=== PATIENT | male | born 1950 | race Hispanic/Latino ===

== ENCOUNTER 2018-08-10 08:59 | Day surgery (SDC) | payer MEDICARE ==
[2018-08-10] MEDS ORDERED: NACL 0.9% 1000 ML 1,000 ML IV SCH (11:30)
[2018-08-10] MEDS ORDERED: ADRENALIN ONE (11:37)
[2018-08-10] MEDS ORDERED: XYLOCAINE 1% 20 mL ONE (11:37)
[2018-08-10] MEDS ORDERED: LIDOCAINE VISCOUS 2% ONE (11:37)
[2018-08-10] MEDS ORDERED: HURRICAINE ONE 20% TOPICAL SPRAY MM (11:38)
[2018-08-10] MEDS ORDERED: WATER FOR IRRIG STERILE IR ONE (11:38)
--- NOTE | 2018-08-10 11:45 | Anesthesia Consultation ---
Anesthesia Consult and Med Hx Date of service: 08/10/18 - Airway Anesthetic Teeth Evaluation: Dentures (upper) ROM Head & Neck: Adequate Mental/Hyoid Distance: Adequate Mallampati Class: Class III Intubation Access Assessment: Possibly Difficult - Pre-Operative Health Status ASA Pre-Surgery Classification: ASA3 Proposed Anesthetic Plan: MAC - Pre-Anesthesia Comment Pre-Anesthesia Comments: lung mass - Pulmonary Hx Smoking: Yes (quit 2013) SOB: Yes COPD: Yes (daily inhalers) - Cardiovascular System Hx Peripheral Vascular Disease: Yes (DVT ) - Endocrine Hx Renal Disease: Yes (Renal insuff ) - Other Systems Hx Alcohol Use: Yes (daily 2-3 beers ) Hx Substance Use: Yes (quit 15 years ago )
--- NOTE | 2018-08-10 11:46 | Anesthesia Day of Surgery ---
Anesthesia Day of Surgery - Day of Surgery Patient Examined: Yes Patient H&P Reviewed: Yes Patient is NPO: Yes
[2018-08-10] MEDS ORDERED: LIDOCAINE VISCOUS 2% PO ONE ×2 (12:10→12:12)
[2018-08-10] MEDS ORDERED: DIPRIVAN 10 MG/ML IV ONE ×2 (12:12→12:36)
[2018-08-10] MEDS ORDERED: DILAUDID ONE (12:12)
[2018-08-10] MEDS ORDERED: VERSED ONE (12:12)
[2018-08-10] MEDS ORDERED: XYLOCAINE 2% INFILTRATI ONE (12:12)
[2018-08-10] MEDS ORDERED: XYLOCAINE 1% 20 mL INFILTRATI ONE ×3 (12:30→12:42)
[2018-08-10] MEDS ORDERED: ADRENALIN IV ONE (12:41)
--- NOTE | 2018-08-10 13:40 | Operative Report ---
PROCEDURE: Bronchoscopy. INDICATIONS: Hemoptysis, right upper lung mass. DESCRIPTION OF PROCEDURE: With the informed consent obtained from the patient, procedure was done. The procedure was done under MAC anesthesia. Via the right naris, endoscope was introduced. No bleeding noted in the upper airway. Vocal cords had good abduction and adduction. No blood or lesion noted endotracheally. The left lung appeared normal. No endobronchial lesions noted. No bleeding coming from the left lung. In the right upper lobe, there was an obstructing lesion, possible clot with mass. The scope was also introduced in the lower and middle lobes. Bronchial washing, brushing, and biopsy done in the right upper lobe. Specimen from washing sent for [employer], fungal, and also for cytology. Specimen from brushing sent for cytology. Specimen from biopsy sent pathology. There was a lot of bleeding noted even prior to washings or biopsies were done or even before brushings were sent. Aliquots of ice cold saline, approximately a total of 3 mL of diluted epinephrine were introduced with significant decrease in bleeding. See Anesthesia notes in reference to vital signs and medications used during the procedure. Approximately 3 mL of lidocaine was also used empirically. The patient was awake and alert to person and place after the procedure. I spoke to patient's passenger coach driver, Zachary Mayes, in reference to followup. JOB# [id number] DARWIN/DORIAN
[2018-08-10 13:58] VITALS: BP 113/69
--- NOTE | 2018-08-10 14:02 | XRay Report ---
AP CHEST: HISTORY: Status post biopsy on right There is partial atelectasis throughout the right upper lobe with suggestion of a right hilar mass/adenopathy. The remainder of the lungs are clear. Mild emphysematous changes are suspected. No evidence for pneumothorax, pneumonia or pleural effusion. Heart size is within normal limits. IMPRESSION: No evidence for pneumothorax. Partial atelectasis in the right upper lobe with probable right hilar mass.
== END 2018-08-10 09:00 | disposition home or self-care (01) ==
LOC: GIO 08:59
PROVIDERS: ATTEND Specialist
DX: J98.4 Other disorders of lung (principal); J44.9 Chronic obstructive pulmonary disease, unspecified; M06.9 Rheumatoid arthritis, unspecified; I73.9 Peripheral vascular disease, unspecified; M10.9 Gout, unspecified; Z72.89 Other problems related to lifestyle; Z87.891 Personal history of nicotine dependence; Z86.718 Personal history of other venous thrombosis and embolism
CPT/HCPCS: 31625; 71045; 87102; 87116; 87220; 88104; 88112; 88305; J0171; J1170; J2250; J2704; J7030

== ENCOUNTER 2018-08-19 20:42 | Inpatient (IN) | payer MEDICARE ==
[2018-08-19] MEDS ORDERED: NACL 0.9% 1000 ML 1,000 ML IV ONE (21:05)
[2018-08-19 21:28] LABS: INR 0.97 (0.87-1.13)
[2018-08-19 21:29] LABS: Partial Thromboplastin Time 25.2 Sec. (24.2-36.6)
[2018-08-19 21:29] LABS: Basophils # (Auto) 0.1 K/mm3 (0.0-0.1); Basophils % (Auto) 0.8 % (0.0-1.8); Eosinophils # (Auto) 0.3 K/mm3 (0.0-0.4); Eosinophils % (Auto) 2.3 % (0.0-4.3); Hematocrit 43.1 % (35.5-45.6); Hemoglobin 14.6 gm/dl (11.8-15.2); Lymphocytes # (Auto) 2.3 K/mm3 (1.2-5.4); Lymphocytes % (Auto) 20.4 % (13.4-35.0); Mean Corpuscular HGB Conc 34 % (32-34); Mean Corpuscular Hemoglobin 33 pg (28-32); Mean Corpuscular Volume 97 fl (84-94); Monocytes # (Auto) 1.3 K/mm3 (0.0-0.8); Monocytes % (Auto) 10.9 % (0.0-7.3); Platelet Count 371 K/mm3 (140-440); Red Blood Count 4.43 M/mm3 (3.65-5.03); Red Cell Distribution Width 12.6 % (13.2-15.2)
[2018-08-19 21:45] LABS: Alanine Aminotransferase 11 units/L (7-56); Albumin 3.8 g/dL (3.9-5); BUN/Creatinine Ratio 10; Blood Urea Nitrogen 6 mg/dL (9-20); Calcium 9.4 mg/dL (8.4-10.2); Hemolysis Index 6; Lipase 16 units/L (13-60)
--- NOTE | 2018-08-19 22:49 | Emergency Department Report ---
ED GI Bleed HPI - General Chief complaint: GI Bleed Stated complaint: WEAK/THROWING UP BLOOD Time Seen by Provider: 08/19/18 22:48 Source: patient Mode of arrival: Ambulatory Limitations: No Limitations - History of Present Illness Initial comments: Patient presented to the emergency room complaining of coughing and having black stools. He was evaluated here with CT scan, bronchoscopy and biopsy was done for right lung mass after which he was discharged home. However patient said that he is still coughing up blood and recently his stools has turned black. MD complaint: other (black stool) -: Sudden Radiation: none Quality: painless Consistency: constant Improves with: none Worsens with: none Associated Symptoms: abdominal pain. denies: nausea, vomiting - Related Data Home Medications Medication Instructions Recorded Confirmed Last Taken Probenecid/Colchicine 1 tab PO DAILY 09/23/14 08/10/18 08/09/18 [Probenecid-Colchicine Tab] Alfuzosin HCl 10 mg PO DAILY 08/10/18 08/10/18 08/09/18 Temazepam 30 mg PO DAILY 08/10/18 08/10/18 08/09/18 Allergies Allergy/AdvReac Type Severity Reaction Status Date / Time No Known Allergies Allergy Verified 09/23/14 23:52 ED Review of Systems ROS: Stated complaint: WEAK/THROWING UP BLOOD Other details as noted in HPI Comment: All other systems reviewed and negative Constitutional: denies: chills, fever Eyes: denies: eye pain ENT: denies: ear pain Respiratory: denies: cough, orthopnea, shortness of breath Cardiovascular: denies: chest pain, palpitations, dyspnea on exertion Endocrine: no symptoms reported Gastrointestinal: abdominal pain, other (Black stools). denies: nausea, vomiting, diarrhea, constipation Genitourinary: denies: urgency, dysuria Musculoskeletal: denies: back pain Skin: denies: rash, lesions Neurological: denies: headache, weakness, numbness, paresthesias Psychiatric: denies: anxiety, depression Hematological/Lymphatic: denies: easy bleeding, easy bruising ED Past Medical Hx - Past Medical History Hx Deep Vein Thrombosis: Yes (Right leg 05/2014) Hx Renal Disease: Yes (Renal insuff ) Hx Arthritis: Yes (Gout, RA) Hx Kidney Stones: Yes Hx COPD: Yes (daily inhalers) Additional medical history: BPH - Social History Smoking Status: Never Smoker Substance Use Type: Alcohol - Medications Home Medications: Home Medications Medication Instructions Recorded Confirmed Last Taken Type Probenecid/Colchicine 1 tab PO DAILY 09/23/14 08/10/18 08/09/18 History [Probenecid-Colchicine Tab] Alfuzosin HCl 10 mg PO DAILY 08/10/18 08/10/18 08/09/18 History Temazepam 30 mg PO DAILY 08/10/18 08/10/18 08/09/18 History ED Physical Exam - General Limitations: No Limitations General appearance: alert, in no apparent distress - Head Head exam: Present: atraumatic, normocephalic, normal inspection - Eye Eye exam: Present: normal appearance, PERRL, EOMI Pupils: Present: normal accommodation - ENT ENT exam: Present: normal exam, normal orophraynx, mucous membranes moist - Neck Neck exam: Present: normal inspection, full ROM. Absent: tenderness - Respiratory Respiratory exam: Present: normal lung sounds bilaterally. Absent: respiratory distress, wheezes, rales, rhonchi, stridor - Cardiovascular Cardiovascular Exam: Present: normal rhythm, tachycardia, normal heart sounds - GI/Abdominal GI/Abdominal exam: Present: soft, distended, tenderness, normal bowel sounds. Absent: guarding, rebound, rigid - Rectal Rectal exam: Present: normal rectal tone, heme (+) stool, black stool, other ( [place] was Ms. Noemi RN.) - Extremities Exam Extremities exam: Present: normal inspection, full ROM, normal capillary refill. Absent: tenderness - Back Exam Back exam: Present: normal inspection, full ROM. Absent: tenderness - Neurological Exam Neurological exam: Present: alert, oriented X3, CN II-XII intact - Psychiatric Psychiatric exam: Present: normal affect, normal mood - Skin Skin exam: Present: warm, dry, intact, normal color. Absent: rash ED Course Vital Signs 08/19/18 21:00 Temperature 97.9 F Pulse Rate 106 H Respiratory 18 Rate Blood Pressure 179/95 O2 Sat by Pulse 95 Oximetry ED Medical Decision Making - Lab Data Result diagrams: 08/19/18 21:16 08/19/18 21:16 Lab Results 08/19/18 08/19/18 08/19/18 Range/Units 21:08 21:16 21:16 WBC 11.5 H (4.5-11.0) K/mm3 RBC 4.43 (3.65-5.03) M/mm3 Hgb 14.6 (11.8-15.2) gm/dl Hct 43.1 (35.5-45.6) % MCV 97 H (84-94) fl MCH 33 H (28-32) pg MCHC 34 (32-34) % RDW 12.6 L (13.2-15.2) % Plt Count 371 (140-440) K/mm3 Lymph % (Auto) 20.4 (13.4-35.0) % [place] % (Auto) 10.9 H (0.0-7.3) % Eos % (Auto) 2.3 (0.0-4.3) % Baso % (Auto) 0.8 (0.0-1.8) % Lymph # 2.3 (1.2-5.4) K/mm3 [place] # 1.3 H (0.0-0.8) K/mm3 Eos # 0.3 (0.0-0.4) K/mm3 Baso # 0.1 (0.0-0.1) K/mm3 Seg Neutrophils % 65.6 (40.0-70.0) % Seg Neutrophils # 7.5 (1.8-7.7) K/mm3 PT 13.4 (12.2-14.9) Sec. INR 0.97 (0.87-1.13) APTT 25.2 (24.2-36.6) Sec. Sodium 131 L (137-145) mmol/L Potassium 4.4 (3.6-5.0) mmol/L Chloride 95.8 L (98-107) mmol/L Carbon Dioxide 23 (22-30) mmol/L Anion Gap 17 mmol/L BUN 6 L (9-20) mg/dL Creatinine 0.6 L (0.8-1.5) mg/dL Estimated GFR > 60 ml/min BUN/Creatinine Ratio 10 % Glucose 94 (75-100) mg/dL Calcium 9.4 (8.4-10.2) mg/dL Total Bilirubin 0.40 (0.1-1.2) mg/dL AST 26 (5-40) units/L ALT 11 (7-56) units/L Alkaline Phosphatase 175 H (35-129) units/L Troponin T (0.00-0.029) ng/mL NT-Pro-B Natriuret Pep (0-900) pg/mL Total Protein 7.4 (6.3-8.2) g/dL Albumin 3.8 L (3.9-5) g/dL Albumin/Globulin Ratio 1.1 % Lipase 16 (13-60) units/L Urine Color (Yellow) Urine Turbidity (Clear) Urine pH (5.0-7.0) Ur Specific [place] (1.003-1.030) Urine Protein (Negative) mg/dL Urine Glucose (UA) (Negative) mg/dL Urine Ketones (Negative) mg/dL Urine Blood (Negative) Urine Nitrite (Negative) Urine Bilirubin (Negative) Urine Urobilinogen (<2.0) mg/dL Ur Leukocyte Esterase (Negative) Urine WBC (Auto) (0.0-6.0) /HPF Urine RBC (Auto) (0.0-6.0) /HPF Blood Type Antibody Screen 08/19/18 08/19/18 08/19/18 Range/Units 21:17 22:57 22:57 WBC (4.5-11.0) K/mm3 RBC (3.65-5.03) M/mm3 Hgb (11.8-15.2) gm/dl Hct (35.5-45.6) % MCV (84-94) fl MCH (28-32) pg MCHC (32-34) % RDW (13.2-15.2) % Plt Count (140-440) K/mm3 Lymph % (Auto) (13.4-35.0) % [place] % (Auto) (0.0-7.3) % Eos % (Auto) (0.0-4.3) % Baso % (Auto) (0.0-1.8) % Lymph # (1.2-5.4) K/mm3 [place] # (0.0-0.8) K/mm3 Eos # (0.0-0.4) K/mm3 Baso # (0.0-0.1) K/mm3 Seg Neutrophils % (40.0-70.0) % Seg Neutrophils # (1.8-7.7) K/mm3 PT (12.2-14.9) Sec. INR (0.87-1.13) APTT (24.2-36.6) Sec. Sodium (137-145) mmol/L Potassium (3.6-5.0) mmol/L Chloride (98-107) mmol/L Carbon Dioxide (22-30) mmol/L Anion Gap mmol/L BUN (9-20) mg/dL Creatinine (0.8-1.5) mg/dL Estimated GFR ml/min BUN/Creatinine Ratio % Glucose (75-100) mg/dL Calcium (8.4-10.2) mg/dL Total Bilirubin (0.1-1.2) mg/dL AST (5-40) units/L ALT (7-56) units/L Alkaline Phosphatase (35-129) units/L Troponin T < 0.010 (0.00-0.029) ng/mL NT-Pro-B Natriuret Pep 46.60 (0-900) pg/mL Total Protein (6.3-8.2) g/dL Albumin (3.9-5) g/dL Albumin/Globulin Ratio % Lipase (13-60) units/L Urine Color (Yellow) Urine Turbidity (Clear) Urine pH (5.0-7.0) Ur Specific [place] (1.003-1.030) Urine Protein (Negative) mg/dL Urine Glucose (UA) (Negative) mg/dL Urine Ketones (Negative) mg/dL Urine Blood (Negative) Urine Nitrite (Negative) Urine Bilirubin (Negative) Urine Urobilinogen (<2.0) mg/dL Ur Leukocyte Esterase (Negative) Urine WBC (Auto) (0.0-6.0) /HPF Urine RBC (Auto) (0.0-6.0) /HPF Blood Type O POSITIVE Antibody Screen Negative 08/19/18 Range/Units 23:53 WBC (4.5-11.0) K/mm3 RBC (3.65-5.03) M/mm3 Hgb (11.8-15.2) gm/dl Hct (35.5-45.6) % MCV (84-94) fl MCH (28-32) pg MCHC (32-34) % RDW (13.2-15.2) % Plt Count (140-440) K/mm3 Lymph % (Auto) (13.4-35.0) % [place] % (Auto) (0.0-7.3) % Eos % (Auto) (0.0-4.3) % Baso % (Auto) (0.0-1.8) % Lymph # (1.2-5.4) K/mm3 [place] # (0.0-0.8) K/mm3 Eos # (0.0-0.4) K/mm3 Baso # (0.0-0.1) K/mm3 Seg Neutrophils % (40.0-70.0) % Seg Neutrophils # (1.8-7.7) K/mm3 PT (12.2-14.9) Sec. INR (0.87-1.13) APTT (24.2-36.6) Sec. Sodium (137-145) mmol/L Potassium (3.6-5.0) mmol/L Chloride (98-107) mmol/L Carbon Dioxide (22-30) mmol/L Anion Gap mmol/L BUN (9-20) mg/dL Creatinine (0.8-1.5) mg/dL Estimated GFR ml/min BUN/Creatinine Ratio % Glucose (75-100) mg/dL Calcium (8.4-10.2) mg/dL Total Bilirubin (0.1-1.2) mg/dL AST (5-40) units/L ALT (7-56) units/L Alkaline Phosphatase (35-129) units/L Troponin T (0.00-0.029) ng/mL NT-Pro-B Natriuret Pep (0-900) pg/mL Total Protein (6.3-8.2) g/dL Albumin (3.9-5) g/dL Albumin/Globulin Ratio % Lipase (13-60) units/L Urine Color [place] (Yellow) Urine Turbidity Clear (Clear) Urine pH 6.0 (5.0-7.0) Ur Specific [place] 1.029 (1.003-1.030) Urine Protein <15 mg/dl (Negative) mg/dL Urine Glucose (UA) Neg (Negative) mg/dL Urine Ketones Neg (Negative) mg/dL Urine Blood Neg (Negative) Urine Nitrite Neg (Negative) Urine Bilirubin Neg (Negative) Urine Urobilinogen < 2.0 (<2.0) mg/dL Ur Leukocyte Esterase Neg (Negative) Urine WBC (Auto) 1.0 (0.0-6.0) /HPF Urine RBC (Auto) 2.0 (0.0-6.0) /HPF Blood Type Antibody Screen - EKG Data -: EKG Interpreted by Me EKG shows normal: sinus rhythm Rate: normal (95) - EKG Data When compared to previous EKG there are: previous EKG unavailable Interpretation: normal EKG, other (No STEMI.) - Radiology Data Radiology results: report reviewed, image reviewed CT Chest with IV contrast: IMPRESSION: There is a right paratracheal mediastinal mass extending into the right pulmonary hilum measuring approximately 5 x 6.8 x 5.1 centimeters. The this is highly suspicious for malignancy. There are enlarged adjacent mediastinal lymph nodes. There is obstruction of the right upper lung bronchi and right upper lobe atelectasis. There are no effusions or pneumothoraces. Transcribed By: CO Dictated By: RYAN COVARRUBIAS MD Electronically Authenticated By: RYAN COVARRUBIAS MD Signed Date/Time: 08/20/18 0008 - Medical Decision Making Patient present to hemoptysis and black stools. Rectal exam showed guaiac positive stools. Patient had previously been seen in this hospital and worked up for right lung mass with biopsy. However he is still having hemoptysis and now he is also having GI bleed. Based on this reason I consulted the hospitalist on-call Dr Robina Healy to admit the patient to the hospital for further evaluation and management. He may need colonoscopy as an inpatient. Critical Care Time: Yes Critical care time in (mins) excluding proc time.: 38 Critical care attestation.: If time is entered above; I have spent that time in minutes in the direct care of this critically ill patient, excluding procedure time. ED Disposition Clinical Impression: Mass of right lung, Hemoptysis GI bleed Qualifiers: GI bleed type/associated pathology: unspecified gastrointestinal hemorrhage type Qualified Code(s): K92.2 - Gastrointestinal hemorrhage, unspecified Disposition: OP ADMIT IP TO THIS HOSP Is pt being admited?: No Does the pt Need Aspirin: No Condition: Stable Referrals: PRIMARY CARE, [Primary Care Provider] - 3-5 Days Forms: Accompanied Note Time of Disposition: 01:46
--- NOTE | 2018-08-19 23:36 | XRay Report ---
FINAL REPORT PROCEDURE: XR CHEST 1V AP TECHNIQUE: Chest radiograph anteroposterior view. CPT 29997 HISTORY: Cough COMPARISON: CT dated 07/29/2018 FINDINGS: Heart: Normal. Mediastinum/Vessels: There is a right mediastinal/hilar mass measuring approximately 6.8 centimeters. Malignancy is suspected. Lungs/Pleural space: There is atelectasis of the right upper lung.. Lungs are otherwise expanded and clear. There are no infiltrates. There is no pleural effusion or pneumothorax.. Bony thorax: No acute osseous abnormality. Life support devices: None. IMPRESSION: The heart size is normal. There is a right mediastinal/hilar mass measuring approximately 6.8 centimeters. Malignancy is suspected. There is atelectasis of the right upper lung.. Lungs are otherwise expanded and clear. There are no infiltrates. There is no pleural effusion or pneumothorax..
--- NOTE | 2018-08-20 00:09 | Cat Scan Report ---
FINAL REPORT PROCEDURE: CT CHEST W CON TECHNIQUE: Computerized axial tomography of the chest was performed during the IV injection of iodinated nonionic contrast. HISTORY: Hemoptysis COMPARISON: No prior studies are available for comparison. TECHNICAL QUALITY: Satisfactory. FINDINGS: The heart size is normal. There is no pericardial effusion. Thoracic aorta is normal in caliber. There is mild calcified plaque. There is no aneurysm. There is a right paratracheal mediastinal mass extending into the right pulmonary hilum measuring approximately 5 x 6.8 x 5.1 centimeters. The this is highly suspicious for malignancy. There are enlarged adjacent mediastinal lymph nodes. There is obstruction of the right upper lung bronchi and right upper lobe atelectasis. Lungs are otherwise clear and expanded. There are fibrotic changes at the lung bases. There are no effusions or pneumothoraces. The thoracic spine, sternum and ribs are intact. Images of the upper abdomen demonstrate no acute abnormality. IMPRESSION: There is a right paratracheal mediastinal mass extending into the right pulmonary hilum measuring approximately 5 x 6.8 x 5.1 centimeters. The this is highly suspicious for malignancy. There are enlarged adjacent mediastinal lymph nodes. There is obstruction of the right upper lung bronchi and right upper lobe atelectasis. There are no effusions or pneumothoraces.
[2018-08-20 00:22] LABS: Bilirubin,Urine NEG (Negative); Blood,Urine NEG (Negative); Color,Urine Straw (Yellow); Protein,Urine <15 mg/dL mg/dL (Negative); Urobilinogen,Urine < 2.0 mg/dL (<2.0)
--- NOTE | 2018-08-20 00:38 | Cat Scan Report ---
FINAL REPORT EXAM: CT ABDOMEN PELVIS W CON HISTORY: abdominal pain TECHNIQUE: CT evaluation performed of the abdomen and pelvis following IV and oral contrast administration. Coronal and sagittal imaging also provided for interpretation. PRIORS: Chest CT dated 08/19/2018. FINDINGS: Lower thorax: Known right paratracheal mediastinal mass is partially visualized on the cut off sawyer log images and there is elevation the right hemidiaphragm. COPD changes are noted in the lung bases. Liver: No focal lesions identified of the liver. No intrahepatic biliary ductal dilation. Gallbladder/ biliary system: No cholelithiasis. No extrahepatic biliary ductal dilation. Spleen: No splenic lesions are seen. Pancreas: No pancreatic lesions are seen. Kidneys: 1.3 cm low-attenuation exophytic region from the interpolar right kidney, probable cyst. No hydronephrosis. No ureteral or renal calcifications. Adrenal glands: No adrenal masses. Vasculature: Mild atherosclerotic vascular calcifications. Lymph nodes: No enlarged lymph nodes are seen in the abdomen or pelvis. Bowel, mesentery, peritoneum: No bowel obstruction. Moderate colonic diverticulosis. The appendix is normal. No free intra-abdominal fluid or air. Urinary bladder: No calculi or wall thickening. No filling defect on the delayed images in the dependent bladder. Pelvis: Normal anatomy is noted. No masses. Abdominal wall: Left greater than right fat containing inguinal hernias. Bones: No acute osseous abnormality. IMPRESSION: Moderate diverticulosis, no findings to suggest diverticulitis. 1.3cm probable right renal cyst. Right hilar mass with evidence of right upper lobe collapse on the cut off sawyer log images.
[2018-08-20] MEDS ORDERED: SODIUM CHLORIDE FLUSH SYRINGE 10 ML IV PRN (01:58)
[2018-08-20] MEDS ORDERED: TYLENOL PO PRN (01:58)
[2018-08-20] MEDS ORDERED: ZOFRAN IV PRN (01:58)
--- NOTE | 2018-08-20 02:04 | History and Physical Report ---
History of Present Illness Date of examination: 08/20/18 History of present illness: 68-year-old man with a history of COPD, BPH was recently found to have a lung mass; calcium emergency room today with complaints of black stool. Patient has been coughing up blood and having black stool one month which resolved on August 08. However 3 days after the bronchoscopy, he started having the symptoms again. Today he felt faint and felt like he's lost a lot of blood. He has been following with pulmonary, cytology was unrevealing and the patient is scheduled to obtain A PET scan.Denies NSAID use, he had a colonoscopy 2 years ago, a polyp was removed, otherwise unremarkable Review of systems Constitutional: no weight loss, chills, fever Ears, eyes, nose, mouth and throat: no nasal congestion, no nasal discharge, no sinus pressure, no vision change, no red eye. Neck: No neck pain or rigidity. Cardiovascular: no chest pain, palpitations Respiratory: no cough, shortness of breath Gastrointestinal: no abdominal pain hematochezia Genitourinary : no frequency , no hematuria Musculoskeletal: no joint swelling or muscle ache Integumentary: no rash, no pruritis Neurological: no parathesias, no numbness, no focal weakness Endocrine: no cold or heat intolerance, no polyuria or polydipsia Hematologic/Lymphatic: no easy bruising, no easy bleeding, no gland swelling Allergic/Immunologic: no urticaria, no angioedema. PAST MEDICAL HISTORY: COPD, BPH, zaid mass PAST SURGICAL HISTORY: None SOCIAL HISTORY: No alcohol, no drugs, quit tobacco FAMILY HISTORY: Hypertension Medications and Allergies Allergies Allergy/AdvReac Type Severity Reaction Status Date / Time No Known Allergies Allergy Verified 09/23/14 23:52 Home Medications Medication Instructions Recorded Confirmed Last Taken Type Probenecid/Colchicine 1 tab PO DAILY 09/23/14 08/20/18 08/19/18 History [Probenecid-Colchicine Tab] Alfuzosin HCl 10 mg PO DAILY 08/10/18 08/20/18 08/19/18 History Temazepam 30 mg PO HS 08/10/18 08/20/18 08/18/18 History ALBUTEROL Inhaler (OR & NICU) 2 puff IH QID PRN 08/20/18 08/20/18 08/19/18 History [Proair] Exam - Physical Exam Narrative exam: Gen. appearance: Patient lying in bed, no apparent distress HEENT: Normocephalic, atraumatic, pupils equally round and reactive to light, extraocular movement intact, and no sclericterus,. No JVD or thyromegaly or nodule,neck supple, no carotid bruit ,mucous membranes moist, no exudate or erythema Heart: S1, S2, regular rate and rhythm Lungs: Clear bilaterally, breathing comfortable Abdomen: Positive bowel sounds, non-tender, nondistended, no organomegaly Extremity:no edema cyanosis, clubbing Skin: no rash, dry, warm Neuro: Oriented 3, cranial nerves II-12 intact, speech is fluent, motor and sensory intact Rectal heme positive stool - Constitutional Vitals: Temp Pulse Resp BP Pulse Ox 97.9 F 106 H 18 179/95 95 08/19/18 21:00 08/19/18 21:00 08/19/18 21:00 08/19/18 21:00 08/19/18 21:00 Results - Labs CBC & Chem 7: 08/19/18 21:16 08/19/18 21:16 Labs: Abnormal lab results 08/19/18 08/19/18 Range/Units 21:16 21:16 WBC 11.5 H (4.5-11.0) K/mm3 MCV 97 H (84-94) fl MCH 33 H (28-32) pg RDW 12.6 L (13.2-15.2) % [place] % (Auto) 10.9 H (0.0-7.3) % [place] # 1.3 H (0.0-0.8) K/mm3 Sodium 131 L (137-145) mmol/L Chloride 95.8 L (98-107) mmol/L BUN 6 L (9-20) mg/dL Creatinine 0.6 L (0.8-1.5) mg/dL Alkaline Phosphatase 175 H (35-129) units/L Albumin 3.8 L (3.9-5) g/dL Assessment and Plan Assessment Black stool, probably from swallowed blood Lung mass most likely cancer COPD BPH Plan Admit to medicine Check serial hemoglobin, consult GI, start Protonix Consult pulmonary, DVT prophylaxis
[2018-08-20] MEDS: NACL 0.45% 1000 ML 1,000 ML IV SCH ×2 (04:42→20:24)
[2018-08-20 08:06] LABS: Basophils # (Auto) 0.1 K/mm3 (0.0-0.1); Basophils % (Auto) 0.7 % (0.0-1.8); Eosinophils # (Auto) 0.1 K/mm3 (0.0-0.4); Eosinophils % (Auto) 1.4 % (0.0-4.3); Hematocrit 41.1 % (35.5-45.6); Lymphocytes # (Auto) 1.5 K/mm3 (1.2-5.4); Lymphocytes % (Auto) 14.5 % (13.4-35.0); Mean Corpuscular HGB Conc 34 % (32-34); Mean Corpuscular Hemoglobin 33 pg (28-32); Mean Corpuscular Volume 99 fl (84-94); Monocytes # (Auto) 1.2 K/mm3 (0.0-0.8); Monocytes % (Auto) 11.8 % (0.0-7.3); Platelet Count 330 K/mm3 (140-440); Red Blood Count 4.17 M/mm3 (3.65-5.03); Red Cell Distribution Width 12.3 % (13.2-15.2)
[2018-08-20 08:10] LABS: BUN/Creatinine Ratio 8; Blood Urea Nitrogen 5 mg/dL (9-20); Calcium 9.4 mg/dL (8.4-10.2); Hemolysis Index 29
--- NOTE | 2018-08-20 09:32 | Consultation ---
History of Present Illness Consult date: 08/20/18 Requesting physician: WALLY PRECIADO Reason for consult: lung mass, other (hemoptysis) History of present illness: 68 y/o male presents to the ED with hemoptysis. Patient has been having hemoptysis intermittently since the beginning of July. Found to have a large right upper lobe mass with upper lobe collapse and apparent endobronchial lesion. Referred to Dr. Flores who then bronched patient on 08/11. Reports are in the system but per pathology, all specimens negative for malignancy. Patient then returns yesterday with more hemoptysis and now complaints of dark stools. Pulmonary consulted secondary to hemoptysis and mass lesion that is already known. Past History Past Medical History: other (gout, obstructive lung disease sleep vs anxiety disorder) Past Surgical History: Other (bronch on 08/11) Medications and Allergies Allergies Allergy/AdvReac Type Severity Reaction Status Date / Time No Known Allergies Allergy Verified 09/23/14 23:52 Home Medications Medication Instructions Recorded Confirmed Last Taken Type Probenecid/Colchicine 1 tab PO DAILY 09/23/14 08/20/18 08/19/18 History [Probenecid-Colchicine Tab] Alfuzosin HCl 10 mg PO DAILY 08/10/18 08/20/18 08/19/18 History Temazepam 30 mg PO HS 08/10/18 08/20/18 08/18/18 History ALBUTEROL Inhaler (OR & NICU) 2 puff IH QID PRN 08/20/18 08/20/18 08/19/18 History [Proair] Active Meds: Active Medications Acetaminophen (Tylenol) 650 mg PO Q4H PRN PRN Reason: Pain MILD(1-3)/Fever >100.5/LIRA Sodium Chloride (Nacl 0.45% 1000 Ml) 1,000 mls @ 50 mls/hr IV DIRECT NIKITA Last Admin: 08/20/18 04:42 Dose: 50 mls/hr Miscellaneous Medication (Alfuzosin Hcl) 10 mg PO DAILY [facility] Miscellaneous Medication (Probenecid/Colchicine [Probenecid-Colchicine Tab]) 1 tab PO DAILY [facility] Miscellaneous Medication (Temazepam) 30 mg PO HS NIKITA Ondansetron HCl (Zofran) 4 mg IV Q8H PRN PRN Reason: Nausea And Vomiting Pantoprazole Sodium (Protonix) 40 mg PO QDAY [facility] Sodium Chloride (Sodium Chloride Flush Syringe 10 Ml) 10 ml IV BID NIKITA Sodium Chloride (Sodium Chloride Flush Syringe 10 Ml) 10 ml IV PRN PRN PRN Reason: LINE FLUSH Review of Systems Respiratory: cough, hemoptysis Physical Examination Vital signs: Vital Signs Temp Pulse Resp BP Pulse Ox 97.9 F 106 H 18 179/95 95 08/19/18 21:00 08/19/18 21:00 08/19/18 21:00 08/19/18 21:00 08/19/18 21:00 Results - Laboratory Findings CBC and BMP: 08/20/18 07:11 08/20/18 07:11 PT/INR, D-dimer PT 13.4 Sec. (12.2-14.9) 08/19/18 21:08 INR 0.97 (0.87-1.13) 08/19/18 21:08 Abnormal lab findings: Abnormal Labs 08/19/18 08/19/18 08/20/18 21:16 21:16 07:11 WBC 11.5 H MCV 97 H 99 H MCH 33 H 33 H RDW 12.6 L 12.3 L [place] % (Auto) 10.9 H 11.8 H [place] # 1.3 H 1.2 H Seg Neutrophils % 71.6 H Sodium 131 L Chloride 95.8 L BUN 6 L Creatinine 0.6 L Glucose Alkaline Phosphatase 175 H Albumin 3.8 L 08/20/18 07:11 WBC MCV MCH RDW [place] % (Auto) [place] # Seg Neutrophils % Sodium 134 L Chloride 97.2 L BUN 5 L Creatinine 0.6 L Glucose 116 H Alkaline Phosphatase Albumin - Diagnostic Findings CT scan - chest: image reviewed (Reviewed this chest CT and the one from 07/29. No change, stable mass with endobronchial lesion and upper lobe collapse) Assessment and Plan 68 y/o male with hemoptysis and lung mass who's chief complaint was dizziness. 1. Biopsies negative. Attempted to call pathology this am but no answer. Per my partner, she is going to order a PET CT and possible repeat bronch. She did state that the lesion bled a lot post bronch and that it looked shiny. There could be some concern for carcinoid tumor. Will see if I can send serum serotonin levels and a chromogranin-A level. Also will see if Urine 5-HIAA a metabolite of serotonin break down can be ordered here. 2. Hemoptysis: Normal INR and no coagulopathy history or bleeding this order that we know of. At this point, repeat bronch is not warranted. Patient is not having bright red blood production. Actually is black and appears to be old. 3. Black stools: H/H appears stable. Stools are actually green, not black. GI has signed off. 4. From a pulmonary standpoint, no objection to discharge as there is an outpatient plan in place.
[2018-08-20] MEDS ORDERED: PROBENECID PO SCH (10:00)
[2018-08-20] MEDS ORDERED: ALFUZOSIN HCL 10 MG PO SCH (10:00)
[2018-08-20] MEDS ORDERED: COLCHICINE PO SCH (10:00)
--- NOTE | 2018-08-20 10:00 | Gastroenterology Consultation ---
<JRAROD CHACON - Last Filed: 08/20/18 10:20> History of Present Illness - Reason for Consult Consult date: 08/20/18 black stool Requesting physician: WALLY PRECIADO - History of Present Illness Patient is a 68 y/o male with PMH of COPD, BPH, and recently diagnosed lung mass (s/p bronch w/ bx by Dr. Flores 08/11) who presented to ED with c/o weakness , hemoptysis, and black stool to which GI has been consulted. This morning patient was resting in bed w/o acute distress. He reports coughing up blood with a scant amount of dark red blood noted on bedside tissue. He reports his stool being a dark green color intermittently over the past few weeks though to be associated with hemoptysis. Dark green color now resolved with stool being brown in color per pt. No hematemesis or hematochezia. Admits to mild SOB but denies fever, CP, dizziness, abd pain, N/V, dysphagia, diarrhea, or constipation. No NSAID use or hx of PUD. No previous EGD. Last colonoscopy approximately 2 years ago revealed a polyp but otherwise negative per patient report. Upon exam, rectal revealed brown stool Past History Past Medical History: COPD, other (gout, obstructive lung disease sleep vs anxiety disorder) Past Surgical History: Other (bronch on 08/11) Social history: denies: smoking, alcohol abuse Family history: hypertension Medications and Allergies Allergies Allergy/AdvReac Type Severity Reaction Status Date / Time No Known Allergies Allergy Verified 09/23/14 23:52 Home Medications Medication Instructions Recorded Confirmed Last Taken Type Probenecid/Colchicine 1 tab PO DAILY 09/23/14 08/20/18 08/19/18 History [Probenecid-Colchicine Tab] Alfuzosin HCl 10 mg PO DAILY 08/10/18 08/20/18 08/19/18 History Temazepam 30 mg PO HS 08/10/18 08/20/18 08/18/18 History ALBUTEROL Inhaler (OR & NICU) 2 puff IH QID PRN 08/20/18 08/20/18 08/19/18 History [Proair] Active Meds: Active Medications Acetaminophen (Tylenol) 650 mg PO Q4H PRN PRN Reason: Pain MILD(1-3)/Fever >100.5/LIRA Sodium Chloride (Nacl 0.45% 1000 Ml) 1,000 mls @ 50 mls/hr IV DIRECT NIKITA Last Admin: 08/20/18 04:42 Dose: 50 mls/hr Miscellaneous Medication (Alfuzosin Hcl) 10 mg PO DAILY [facility] Miscellaneous Medication (Probenecid/Colchicine [Probenecid-Colchicine Tab]) 1 tab PO DAILY NIKITA Miscellaneous Medication (Temazepam) 30 mg PO HS NIKITA Ondansetron HCl (Zofran) 4 mg IV Q8H PRN PRN Reason: Nausea And Vomiting Pantoprazole Sodium (Protonix) 40 mg PO QDAY N[facility] Sodium Chloride (Sodium Chloride Flush Syringe 10 Ml) 10 ml IV BID NIKITA Sodium Chloride (Sodium Chloride Flush Syringe 10 Ml) 10 ml IV PRN PRN PRN Reason: LINE FLUSH Review of Systems - Review of Systems All systems: negative Respiratory: other (hemoptysis) Exam - Constitutional Vital Signs: Temp Pulse Resp BP Pulse Ox 98.0 F 92 H 20 165/80 92 08/20/18 08:31 08/20/18 08:31 08/20/18 08:31 08/20/18 08:31 08/20/18 08:31 General appearance: no acute distress - EENT Eyes: PERRL, EOM intact ENT: hearing intact - Respiratory Respiratory: bilateral: diminished - Cardiovascular Rhythm: regular Heart Sounds: Present: S1 & S2 - Gastrointestinal General gastrointestinal: Present: soft, non-tender, non-distended, normal bowel sounds Rectal Exam: stool brown ((patient's nurse Desiree chaperonefrancy during exam)) - Neurologic Neurological: alert and oriented x3 - Labs CBC & Chem 7: 08/20/18 07:11 08/20/18 07:11 Lab Results: Laboratory Results - last 24 hr 08/19/18 08/19/18 08/19/18 21:08 21:16 21:16 WBC 11.5 H RBC 4.43 Hgb 14.6 Hct 43.1 MCV 97 H MCH 33 H MCHC 34 RDW 12.6 L Plt Count 371 Lymph % (Auto) 20.4 [place] % (Auto) 10.9 H Eos % (Auto) 2.3 Baso % (Auto) 0.8 Lymph # 2.3 [place] # 1.3 H Eos # 0.3 Baso # 0.1 Seg Neutrophils % 65.6 Seg Neutrophils # 7.5 PT 13.4 INR 0.97 APTT 25.2 Sodium 131 L Potassium 4.4 Chloride 95.8 L Carbon Dioxide 23 Anion Gap 17 BUN 6 L Creatinine 0.6 L Estimated GFR > 60 BUN/Creatinine Ratio 10 Glucose 94 Calcium 9.4 Total Bilirubin 0.40 AST 26 ALT 11 Alkaline Phosphatase 175 H Troponin T NT-Pro-B Natriuret Pep Total Protein 7.4 Albumin 3.8 L Albumin/Globulin Ratio 1.1 Lipase 16 Urine Color Urine Turbidity Urine pH Ur Specific [place] Urine Protein Urine Glucose (UA) Urine Ketones Urine Blood Urine Nitrite Urine Bilirubin Urine Urobilinogen Ur Leukocyte Esterase Urine WBC (Auto) Urine RBC (Auto) Blood Type Antibody Screen 08/19/18 08/19/18 08/19/18 21:17 22:57 22:57 WBC RBC Hgb Hct MCV MCH MCHC RDW Plt Count Lymph % (Auto) [place] % (Auto) Eos % (Auto) Baso % (Auto) Lymph # [place] # Eos # Baso # Seg Neutrophils % Seg Neutrophils # PT INR APTT Sodium Potassium Chloride Carbon Dioxide Anion Gap BUN Creatinine Estimated GFR BUN/Creatinine Ratio Glucose Calcium Total Bilirubin AST ALT Alkaline Phosphatase Troponin T < 0.010 NT-Pro-B Natriuret Pep 46.60 Total Protein Albumin Albumin/Globulin Ratio Lipase Urine Color Urine Turbidity Urine pH Ur Specific [place] Urine Protein Urine Glucose (UA) Urine Ketones Urine Blood Urine Nitrite Urine Bilirubin Urine Urobilinogen Ur Leukocyte Esterase Urine WBC (Auto) Urine RBC (Auto) Blood Type O POSITIVE Antibody Screen Negative 08/19/18 08/20/18 08/20/18 23:53 07:11 07:11 WBC 10.1 RBC 4.17 Hgb 14.0 Hct 41.1 MCV 99 H MCH 33 H MCHC 34 RDW 12.3 L Plt Count 330 Lymph % (Auto) 14.5 [place] % (Auto) 11.8 H Eos % (Auto) 1.4 Baso % (Auto) 0.7 Lymph # 1.5 [place] # 1.2 H Eos # 0.1 Baso # 0.1 Seg Neutrophils % 71.6 H Seg Neutrophils # 7.2 PT INR APTT Sodium 134 L Potassium 4.7 Chloride 97.2 L Carbon Dioxide 22 Anion Gap 20 BUN 5 L Creatinine 0.6 L Estimated GFR > 60 BUN/Creatinine Ratio 8 Glucose 116 H Calcium 9.4 Total Bilirubin AST ALT Alkaline Phosphatase Troponin T NT-Pro-B Natriuret Pep Total Protein Albumin Albumin/Globulin Ratio Lipase Urine Color Straw Urine Turbidity Clear Urine pH 6.0 Ur Specific [place] 1.029 Urine Protein <15 mg/dl Urine Glucose (UA) Neg Urine Ketones Neg Urine Blood Neg Urine Nitrite Neg Urine Bilirubin Neg Urine Urobilinogen < 2.0 Ur Leukocyte Esterase Neg Urine WBC (Auto) 1.0 Urine RBC (Auto) 2.0 Blood Type Antibody Screen Assessment and Plan 1.black stool? -H/H WNL (14.0/41.1)-stable -continue to monitor H/H and transfuse as needed -patient reports stool being a dark green color not black associated with hemoptysis which has since resolved -HD stable w/ no active signs of bleeding (rectal exam with brown stool) -last colonoscopy 2 years ago revealed a polyp but otherwise negative per pt report -clinically, patient is stable w/o GI complaints. Denies abd pain or N/V. -no plans for endoscopic evaluation at this time since there is no clinical evidence of GI bleeding -okay to resume diet -continue PPI and supportive care -will sign off, please call if needed 2.lung mass 3.hemoptysis -chest CT- No change since previous (stable mass with endobronchial lesion and upper lobe collapse) -s/p bronch 08/11 -pulmonary following <MARS KYLE - Last Filed: 08/20/18 13:06> Medications and Allergies Active Meds: Active Medications Acetaminophen (Tylenol) 650 mg PO Q4H PRN PRN Reason: Pain MILD(1-3)/Fever >100.5/LIRA Sodium Chloride (Nacl 0.45% 1000 Ml) 1,000 mls @ 50 mls/hr IV DIRECT [facility] Last Admin: 08/20/18 04:42 Dose: 50 mls/hr Miscellaneous Medication (Alfuzosin Hcl) 10 mg PO DAILY [facility] Miscellaneous Medication (Probenecid/Colchicine [Probenecid-Colchicine Tab]) 1 tab PO DAILY [facility] Ondansetron HCl (Zofran) 4 mg IV Q8H PRN PRN Reason: Nausea And Vomiting Pantoprazole Sodium (Protonix) 40 mg PO QDAY [facility] Last Admin: 08/20/18 10:10 Dose: 40 mg Sodium Chloride (Sodium Chloride Flush Syringe 10 Ml) 10 ml IV BID NIKITA Sodium Chloride (Sodium Chloride Flush Syringe 10 Ml) 10 ml IV PRN PRN PRN Reason: LINE FLUSH Temazepam (Restoril) 30 mg PO QHS [facility] Exam - Constitutional Vital Signs: Temp Pulse Resp BP Pulse Ox 98.0 F 79 20 161/77 92 08/20/18 12:35 08/20/18 12:43 08/20/18 12:35 08/20/18 12:35 08/20/18 12:35 - Labs CBC & Chem 7: 08/20/18 07:11 08/20/18 07:11 Lab Results: Laboratory Results - last 24 hr 08/19/18 08/19/18 08/19/18 21:08 21:16 21:16 WBC 11.5 H RBC 4.43 Hgb 14.6 Hct 43.1 MCV 97 H MCH 33 H MCHC 34 RDW 12.6 L Plt Count 371 Lymph % (Auto) 20.4 [place] % (Auto) 10.9 H Eos % (Auto) 2.3 Baso % (Auto) 0.8 Lymph # 2.3 [place] # 1.3 H Eos # 0.3 Baso # 0.1 Seg Neutrophils % 65.6 Seg Neutrophils # 7.5 PT 13.4 INR 0.97 APTT 25.2 Sodium 131 L Potassium 4.4 Chloride 95.8 L Carbon Dioxide 23 Anion Gap 17 BUN 6 L Creatinine 0.6 L Estimated GFR > 60 BUN/Creatinine Ratio 10 Glucose 94 Calcium 9.4 Total Bilirubin 0.40 AST 26 ALT 11 Alkaline Phosphatase 175 H Troponin T NT-Pro-B Natriuret Pep Total Protein 7.4 Albumin 3.8 L Albumin/Globulin Ratio 1.1 Lipase 16 Urine Color Urine Turbidity Urine pH Ur Specific [place] Urine Protein Urine Glucose (UA) Urine Ketones Urine Blood Urine Nitrite Urine Bilirubin Urine Urobilinogen Ur Leukocyte Esterase Urine WBC (Auto) Urine RBC (Auto) Blood Type Antibody Screen 08/19/18 08/19/18 08/19/18 21:17 22:57 22:57 WBC RBC Hgb Hct MCV MCH MCHC RDW Plt Count Lymph % (Auto) [place] % (Auto) Eos % (Auto) Baso % (Auto) Lymph # [place] # Eos # Baso # Seg Neutrophils % Seg Neutrophils # PT INR APTT Sodium Potassium Chloride Carbon Dioxide Anion Gap BUN Creatinine Estimated GFR BUN/Creatinine Ratio Glucose Calcium Total Bilirubin AST ALT Alkaline Phosphatase Troponin T < 0.010 NT-Pro-B Natriuret Pep 46.60 Total Protein Albumin Albumin/Globulin Ratio Lipase Urine Color Urine Turbidity Urine pH Ur Specific [place] Urine Protein Urine Glucose (UA) Urine Ketones Urine Blood Urine Nitrite Urine Bilirubin Urine Urobilinogen Ur Leukocyte Esterase Urine WBC (Auto) Urine RBC (Auto) Blood Type O POSITIVE Antibody Screen Negative 08/19/18 08/20/18 08/20/18 23:53 07:11 07:11 WBC 10.1 RBC 4.17 Hgb 14.0 Hct 41.1 MCV 99 H MCH 33 H MCHC 34 RDW 12.3 L Plt Count 330 Lymph % (Auto) 14.5 [place] % (Auto) 11.8 H Eos % (Auto) 1.4 Baso % (Auto) 0.7 Lymph # 1.5 [place] # 1.2 H Eos # 0.1 Baso # 0.1 Seg Neutrophils % 71.6 H Seg Neutrophils # 7.2 PT INR APTT Sodium 134 L Potassium 4.7 Chloride 97.2 L Carbon Dioxide 22 Anion Gap 20 BUN 5 L Creatinine 0.6 L Estimated GFR > 60 BUN/Creatinine Ratio 8 Glucose 116 H Calcium 9.4 Total Bilirubin AST ALT Alkaline Phosphatase Troponin T NT-Pro-B Natriuret Pep Total Protein Albumin Albumin/Globulin Ratio Lipase Urine Color Straw Urine Turbidity Clear Urine pH 6.0 Ur Specific [place] 1.029 Urine Protein <15 mg/dl Urine Glucose (UA) Neg Urine Ketones Neg Urine Blood Neg Urine Nitrite Neg Urine Bilirubin Neg Urine Urobilinogen < 2.0 Ur Leukocyte Esterase Neg Urine WBC (Auto) 1.0 Urine RBC (Auto) 2.0 Blood Type Antibody Screen Assessment and Plan Pt seen and examined. Agree with note above. No signs of GI bleeding. Will sign off, please call as needed or with questions.
[2018-08-20] MEDS: PROTONIX PO SCH (10:10)
--- NOTE | 2018-08-20 11:01 | Event Note ---
Date: 08/20/18 Patient is 68 yo with lung mass
[2018-08-20] MEDS: SODIUM CHLORIDE FLUSH SYRINGE 10 ML IV SCH ×2 (20:24→21:12)
[2018-08-20] MEDS ORDERED: TEMAZEPAM 30 MG PO SCH (22:00)
[2018-08-20] MEDS ORDERED: RESTORIL PO SCH (22:00)
[2018-08-21 05:59] LABS: Hemoglobin 13.5 gm/dl (11.8-15.2); Mean Corpuscular HGB Conc 34 % (32-34); Mean Corpuscular Hemoglobin 33 pg (28-32); Mean Corpuscular Volume 97 fl (84-94); Platelet Count 330 K/mm3 (140-440); Red Blood Count 4.11 M/mm3 (3.65-5.03); Red Cell Distribution Width 12.5 % (13.2-15.2)
[2018-08-21 06:12] LABS: BUN/Creatinine Ratio 10; Blood Urea Nitrogen 6 mg/dL (9-20); Hemolysis Index 1
[2018-08-21 06:29] VITALS: BP 147/82
--- NOTE | 2018-08-21 09:30 | Discharge Summary ---
Providers - Providers Date of Admission: 08/20/18 01:58 Date of discharge: 08/21/18 Attending physician: BERHANE LABOY 08/20/18 02:04 Consult to Physician [CONS] Routine Comment: Consulting Provider: VIC TATE Physician Instructions: Reason For Exam: black stool Primary care physician: DIRECTOR SOFTWARE Hospitalization Condition: Fair Disposition: DC-01 TO HOME OR SELFCARE Core Measure Documentation - Palliative Care Palliative Care/ Comfort Measures: Not Applicable Exam - Constitutional Vitals: Temp Pulse Resp BP Pulse Ox 97.9 F 89 20 147/82 92 08/21/18 05:48 08/21/18 05:48 08/21/18 05:48 08/21/18 05:48 08/21/18 05:48 Plan Activity: advance as tolerated Diet: regular Additional Instructions: 1.Follow up with PCP in 3-5 days. 2.Folllow up with Dr. Flores in 3-5 days Follow up with: PRIMARY CARE, [Primary Care Provider] - 3-5 Days Forms: Accompanied Note
[2018-08-21] MEDS: PROTONIX PO SCH (09:40)
[2018-08-21] MEDS: SODIUM CHLORIDE FLUSH SYRINGE 10 ML IV SCH (09:40)
== END 2018-08-21 12:14 | disposition home or self-care (01) | DRG 378 ==
LOC: ED 20:42 → 4A 08-20 01:58
PROVIDERS: ADMIT Internal Medicine; ATTEND Internal Medicine
DX: K92.1 Melena (principal); R04.2 Hemoptysis; R91.8 Other nonspecific abnormal finding of lung field; J44.9 Chronic obstructive pulmonary disease, unspecified; N40.0 Benign prostatic hyperplasia without lower urinary tract symptoms; M06.9 Rheumatoid arthritis, unspecified; M10.9 Gout, unspecified; Z82.49 Family history of ischemic heart disease and other diseases of the circulatory system; Z79.51 Long term (current) use of inhaled steroids; Z79.899 Other long term (current) drug therapy; Z86.718 Personal history of other venous thrombosis and embolism; Z79.01 Long term (current) use of anticoagulants
CPT/HCPCS: 36415; 71045; 71260; 74177; 80048; 80053; 81001; 83690; 83880; 84260; 84484; 85025; 85027; 85610; 85730; 86850; 86900; 86901; 93005; 93010; 96360; 96361; J7030; Q9967

== ENCOUNTER 2018-08-26 06:55 | Outpatient (CLI) | payer MEDICARE ==
--- NOTE | 2018-08-27 08:13 | PET Report ---
PET/CT:08/26/18 06:55:00 CLINICAL: Right lung mass. RADIOPHARMACEUTICAL: 15.017mCi F18-FDG. COMPARISON: CT CAP 08/19/18 TECHNIQUE- Following intravenous injection of F-18 FDG and an approximately 60 minute uptake period, CT and PET images from the mid skull to the upper thighs were acquired with the patient in the fasted state. No contrast was administered. The CT protocol used for this PET CT study is designed for attenuation correction and anatomic localization of PET abnormalities. This model photographers' CT is not desired to produce and cannot replace, [id number] diagnostic CT scans with specific imaging protocols for different body parts and indications. Plasma glucose at the time of this test: 114g/dl. The standardized uptake values (SUV) are normalized to patient body weight and indicate the highest activity concentration (SUV max) in a given disease site. FINDINGS: Brain--Physiologic FDG uptake in the visualized regions of the brain. Neck--Physiologic FDG uptake . Chest--Physiologic FDG uptake in mediastinal blood pool and myocardium. Lungs--an FDG avid right upper lobe lung mass arises from the proximal right upper lobe bronchus and measures approximately 5.5 cm transverse dimension by 5.0 cm AP dimension by 4.5 cm craniocaudal dimension with SUV 24.8. Partial collapse of the right upper lobe. No other lung mass. Pleura/pericardium--No abnormal uptake. No pleural effusion. Thoracic nodes--A single FDG avid pretracheal lymph node measures approximately 1.6 x 1.6 cm with SUV 22.4. No other lymphadenopathy. Hepatobiliary--No abnormal uptake. Liver background SUV mean, as a reference for comparing FDG studies, is 3.0 . No liver mass. Spleen--No abnormal uptake. Pancreas--No abnormal uptake. Adrenal Glands--No mass and no abnormal uptake. Kidneys/Ureters/Bladder--No abnormal uptake. Abdominopelvic Nodes--No abnormal uptake. Bowel/Peritoneum/Mesentery--No abnormal uptake. Diverticulosis of the descending and sigmoid colon but no diverticulitis. Pelvic organs--No abnormal uptake. Bones/Soft Tissues--No abnormal uptake. Other findings: Bilateral fat containing inguinal hernias. IMPRESSION- 1. 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 2. A single mediastinal nabil metastasis. 3. No evidence of pulmonary, hepatic, adrenal or skeletal metastasis.
== END 2018-08-26 06:56 | disposition home or self-care (01) ==
LOC: PET 06:55
PROVIDERS: ATTEND Specialist
DX: C34.12 Malignant neoplasm of upper lobe, left bronchus or lung (principal); K40.20 Bilateral inguinal hernia, without obstruction or gangrene, not specified as recurrent; J44.9 Chronic obstructive pulmonary disease, unspecified; M19.90 Unspecified osteoarthritis, unspecified site; I73.9 Peripheral vascular disease, unspecified; Z87.891 Personal history of nicotine dependence
CPT/HCPCS: 78815; 82962; A9552

== ENCOUNTER 2018-09-10 06:55 | Day surgery (SDC) | payer MEDICARE ==
[2018-09-10] MEDS ORDERED: LIDOCAINE VISCOUS 2% ONE ×2 (07:47→07:53)
[2018-09-10] MEDS ORDERED: HURRICAINE ONE 20% TOPICAL SPRAY MM ×3 (07:48→08:05)
[2018-09-10] MEDS ORDERED: XYLOCAINE 1% 20 mL ONE ×2 (07:48→07:53)
[2018-09-10] MEDS ORDERED: ADRENALIN ONE ×2 (07:49→07:52)
[2018-09-10] MEDS ORDERED: LIDOCAINE VISCOUS 2% MM ONE (07:50)
[2018-09-10] MEDS ORDERED: WATER FOR IRRIG STERILE IR ONE (07:52)
[2018-09-10] MEDS ORDERED: NACL 0.9% 1000 ML 1,000 ML IV SCH (08:00)
--- NOTE | 2018-09-10 08:10 | Anesthesia Day of Surgery ---
Anesthesia Day of Surgery - Day of Surgery Patient Examined: Yes Patient H&P Reviewed: Yes Patient is NPO: Yes
--- NOTE | 2018-09-10 08:10 | Anesthesia Consultation ---
Anesthesia Consult and Med Hx Date of service: 09/10/18 - Airway Anesthetic Teeth Evaluation: Edentulous ROM Head & Neck: Adequate Mental/Hyoid Distance: Adequate Mallampati Class: Class II Intubation Access Assessment: Probably Good - Pre-Operative Health Status ASA Pre-Surgery Classification: ASA3 Proposed Anesthetic Plan: MAC - Pulmonary Hx Smoking: Yes Hx Respiratory Symptoms: Yes (lung mass) SOB: Yes COPD: Yes - Cardiovascular System Hx Coronary Artery Disease: Yes Hx Peripheral Vascular Disease: Yes (DVT ) - Endocrine Hx Renal Disease: Yes (Renal insuff ) - Other Systems Hx Alcohol Use: Yes Hx Substance Use: Yes (HX COCAINE AND MARIJUANA)
[2018-09-10] MEDS ORDERED: DIPRIVAN 10 MG/ML IV ONE ×3 (08:14→08:47)
[2018-09-10] MEDS ORDERED: XYLOCAINE 1% 20 mL INFILTRATI ONE (08:20)
[2018-09-10] MEDS ORDERED: ADRENALIN TP ONE (08:25)
--- NOTE | 2018-09-10 09:54 | XRay Report ---
AP CHEST: HISTORY: Right upper lobe biopsy Right hilar mass with right upper lobe atelectasis is noted. The remainder of the lungs are clear. Heart size is at the upper limits of normal. No pneumothorax is visualized.
[2018-09-10 10:04] VITALS: BP 106/56
--- NOTE | 2018-09-14 12:49 | Operative Report ---
INDICATION: Hemoptysis. With informed consent, the procedure was performed. See Anesthesia and nurse's note in reference to medication and vital signs during the procedure. Via the naris, endoscope was introduced. No endotracheal lesions were noted. Good vocal cord movements are noted. In the right upper lobe, there was an endobronchial lesion that was oozing. Washing, brushings, and biopsies done. The patient had some bleeding and received epinephrine aliquots that were diluted. SPECIMENS SENT. Washing specimen sent for cytology, brushing specimen sent for cytology, biopsy sent for cytology. The patient tolerated the procedure well. Post-procedure x-ray was done. I spoke to patient's friend who had brought him to the procedure in reference to the result from the bronchoscopy. JOB# [id number] DARWIN/DORIAN
== END 2018-09-10 06:56 | disposition home or self-care (01) ==
LOC: GIO 06:55
PROVIDERS: ATTEND Specialist
DX: J98.4 Other disorders of lung (principal); J43.2 Centrilobular emphysema; F41.9 Anxiety disorder, unspecified; F32.9 Major depressive disorder, single episode, unspecified; M19.90 Unspecified osteoarthritis, unspecified site; I25.10 Atherosclerotic heart disease of native coronary artery without angina pectoris; G47.00 Insomnia, unspecified; Z79.899 Other long term (current) drug therapy; Z88.5 Allergy status to narcotic agent; Z72.89 Other problems related to lifestyle; Z87.891 Personal history of nicotine dependence; Z86.718 Personal history of other venous thrombosis and embolism; Z98.890 Other specified postprocedural states
CPT/HCPCS: 31628; 71045; 88104; 88112; 88305; J0171; J2704; J7030

== ENCOUNTER 2018-12-20 10:51 | Emergency (ER) | payer MEDICARE ==
[2018-12-20] MEDS ORDERED: ZOFRAN IV ONE ×2 (11:13→12:47)
[2018-12-20] MEDS ORDERED: SUBLIMAZE IV ONE (11:13)
--- NOTE | 2018-12-20 11:18 | Emergency Department Report ---
ED Back Pain/Injury HPI - General Chief Complaint: Back Pain/Injury Stated Complaint: LOWER BACK PAIN Time Seen by Provider: 12/20/18 11:04 Source: patient, EMS Limitations: Physical Limitation - History of Present Illness Initial Comments: Patient is 68-year-old male with a history of squamous cell carcinoma of the lung, right lower lobe, COPD. Patient recently started on radiation. Patient presented to the ER complaining of lower back pain for one week now. Patient does not remember any injury except when he was laying flat on the table for radiation when he felt his sacrum hurt. Patient denied any fever, weakness, numbness or tingling sensation. No bowel or bladder incontinence. MD Complaint: back pain -: week(s) Similar Symptoms Previously: Yes Place: home Radiation: none Severity: moderate Severity scale (0 -10): 6 Quality: sharp Consistency: intermittent Improves With: immobilization Worsens With: movement Associated Symptoms: denies other symptoms - Related Data Home Medications Medication Instructions Recorded Confirmed Last Taken Alfuzosin HCl 10 mg PO DAILY 08/10/18 10/26/18 09/09/18 Temazepam 30 mg PO HS 08/10/18 10/26/18 10/25/18 ALBUTEROL Inhaler (OR & NICU) 2 puff IH QID PRN 08/20/18 10/26/18 09/10/18 [ProAir HFA Inhaler] Prednisone 10 mg PO DAILY 09/03/18 10/26/18 10/25/18 Probenecid-Colchicine Tab 0.5 - 500 mg PO DAILY 09/03/18 10/26/18 09/09/18 busPIRone 10 mg PO DAILY 09/03/18 10/26/18 09/09/18 Anoro Ellipta 62.5-25 Mcg INH 1 puff INHALATION DAILY 09/06/18 10/26/18 09/09/18 Melatonin 1 tab PO DAILY 10/26/18 10/26/18 10/25/18 Previous Rx's Medication Instructions Recorded Last Taken Type levoFLOXacin [Levaquin] 750 mg PO QDAY #7 tablet 10/27/18 Unknown Rx Allergies Allergy/AdvReac Type Severity Reaction Status Date / Time codeine Allergy Mild Vomiting Verified 09/06/18 09:49 ED Review of Systems ROS: Stated complaint: LOWER BACK PAIN Other details as noted in HPI Comment: All other systems reviewed and negative Constitutional: denies: chills, fever Respiratory: denies: cough, orthopnea, shortness of breath, SOB with exertion, SOB at rest, wheezing Cardiovascular: denies: chest pain, palpitations, dyspnea on exertion, orthopnea, edema, syncope, paroxysmal nocturnal dyspnea Gastrointestinal: denies: abdominal pain, nausea, vomiting, diarrhea, constipation, hematemesis, melena, hematochezia Musculoskeletal: denies: back pain Neurological: denies: headache, weakness, numbness, paresthesias, confusion, abnormal gait ED Past Medical Hx - Past Medical History Previous Medical History?: Yes Hx Hypertension: No Hx Heart Attack/AMI: No Hx Deep Vein Thrombosis: Yes (4 years ago) Hx Liver Disease: No Hx Renal Disease: Yes (hx renal insufficiency; 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) Hx of Cancer: Yes (lung 07/2018) Hx Arthritis: Yes Hx Seizures: No Hx Kidney Stones: Yes Hx COPD: Yes Additional medical history: BPH - Surgical History Past Surgical History?: No - Social History Smoking Status: Former Smoker Substance Use Type: Alcohol - Medications Home Medications: Home Medications Medication Instructions Recorded Confirmed Last Taken Type Alfuzosin HCl 10 mg PO DAILY 08/10/18 10/26/18 09/09/18 History Temazepam 30 mg PO HS 08/10/18 10/26/18 10/25/18 History ALBUTEROL Inhaler (OR & NICU) 2 puff IH QID PRN 08/20/18 10/26/18 09/10/18 History [ProAir HFA Inhaler] Prednisone 10 mg PO DAILY 09/03/18 10/26/18 10/25/18 History Probenecid-Colchicine Tab 0.5 - 500 mg PO DAILY 09/03/18 10/26/18 09/09/18 History busPIRone 10 mg PO DAILY 09/03/18 10/26/18 09/09/18 History Anoro Ellipta 62.5-25 Mcg INH 1 puff INHALATION DAILY 09/06/18 10/26/18 09/09/18 History Melatonin 1 tab PO DAILY 10/26/18 10/26/18 10/25/18 History levoFLOXacin [Levaquin] 750 mg PO QDAY #7 tablet 10/27/18 Unknown Rx ED Physical Exam - General Limitations: Physical Limitation General appearance: alert, in no apparent distress - Head Head exam: Present: atraumatic, normocephalic, normal inspection - Eye Eye exam: Present: normal appearance - ENT ENT exam: Present: normal exam, normal orophraynx, mucous membranes moist - Neck Neck exam: Present: normal inspection, full ROM. Absent: tenderness, meningismus, lymphadenopathy, thyromegaly - Respiratory Respiratory exam: Present: normal lung sounds bilaterally. Absent: respiratory distress, wheezes, rales, rhonchi, stridor, chest wall tenderness, accessory muscle use, decreased breath sounds, prolonged expiratory - Cardiovascular Cardiovascular Exam: Present: regular rate, normal rhythm, normal heart sounds - GI/Abdominal GI/Abdominal exam: Present: soft, normal bowel sounds. Absent: distended, tenderness, guarding, rebound, rigid, hypoactive bowel sounds, organomegaly, mass, bruit, pulsatile mass, hernia - Extremities Exam Extremities exam: Present: normal inspection, full ROM, normal capillary refill. Absent: pedal edema, calf tenderness - Back Exam Back exam: Present: normal inspection, full ROM, paraspinal tenderness. Absent: CVA tenderness (R), CVA tenderness (L), muscle spasm, vertebral tenderness, rash noted - Neurological Exam Neurological exam: Present: alert, oriented X3, CN II-XII intact, normal gait, reflexes normal - Psychiatric Psychiatric exam: Present: normal mood - Skin Skin exam: Present: warm, intact, normal color ED Course Vital Signs 12/20/18 11:04 Temperature 98 F Pulse Rate 122 H Respiratory 20 Rate Blood Pressure 136/75 [Right] O2 Sat by Pulse 97 Oximetry ED Medical Decision Making - Lab Data Result diagrams: 12/20/18 11:31 12/20/18 11:31 - Radiology Data Radiology results: report reviewed Referring Physician: NOEMY ARELLANO Patient Name: STERLING BROUSSARD Date of : 1950 Sex: Male Report Date: 2018-12-20 Report Status: Finalized Findings [facility] [address] [place] [address] Cat Scan Report Signed Patient: STERLING BROUSSARD MR#: [id number] : 1950 Acct:[id number] Age/Sex: 68 / M ADM Date: 12/20/18 Loc: ED Attending Dr: Ordering Physician: NOEMY ARELLANO Date of Service: 12/20/18 Procedure(s): CT lumbar spine wo con Accession Number(s): [id number] cc: NOEMY ARELLANO FINAL REPORT EXAM: CT LUMBAR SPINE WO CON HISTORY: lower back pain, s/p radiation for lung cancer TECHNIQUE: CT of the Lumbar Spine without IV contrast. Coronal and sagittal reformatted images were provided. PRIORS: Sagittal reconstructed images from a CT abdomen and pelvis dated August 19, 2018. FINDINGS: Diffuse osteopenia. T12 moderate compression fracture deformity appears subacute to chronic. No significant retropulsion. No significant canal narrowing. L3 moderate superior endplate compression fracture deformity appears subacute to chronic. 4.0 mm retropulsion. Kwow-hl-xeqwzeqe spinal canal narrowing. There is no subluxation. T11-T12: Symmetrical bulge indents the thecal sac. No significant canal or foraminal narrowing. T12-L1: Symmetrical bulge. Minimal to mild spinal canal narrowing. Bilateral foramina are intact. L1-L2: Symmetrical bulge. Mild spinal canal narrowing. Bilateral foramina are intact. L2-L3: Symmetrical bulge. Bvjf-sk-pzbppsdp spinal canal narrowing. Bilateral f oramina are intact. L3-L4: Symmetrical bulge. Mild spinal canal narrowing. Bilateral foramina are intact. L4-L5: Symmetrical bulge. Bilateral ligamentum flavum hypertrophy. Joys-nf-qiaxnewf spinal canal narrowing. Mild bilateral foraminal narrowing. L5-S1: Degenerated disc. Symmetrical disc osteophyte complex. Bilateral facet arthropathy. Nsam-le-wanujjzh spinal canal narrowing. Tegh-el-pvllnpsd bilateral foraminal narrowing. Prevertebral soft tissue structures are unremarkable. SI joints are unremarkable. Images of the sacrum are grossly unremarkable. Moderate aortic atherosclerotic disease. No aneurysm. No periaortic or retroperitoneal mass or adenopathy. IMPRESSION: Diffuse osteopenia. T12 and L3 compression fractures appear subacute to chronic. No significant canal narrowing. Compression fractures were not present on prior. Multilevel degenerative discs and arthropathy. Transcribed By: TYM Dictated By: SOHAN IGNACIO MD Electronically Authenticated By: SOHAN IGNACIO MD Signed Date/Time: 12/20/18 1247 DD/ 1250 TD/TT: 12/20/18 1250 - Medical Decision Making Patient is 68-year-old male with a history of squamous cell carcinoma of the lung, right lower lobe, COPD. Patient recently started on radiation. Patient presented to the ER complaining of lower back pain for one week now. Patient does not remember any injury except when he was laying flat on the table for radiation when he felt his sacrum hurt. Patient denied any fever, weakness, numbness or tingling sensation. No bowel or bladder incontinence. Patient stated that he is feeling much better. CT lumbar show subacute compression fracture at T12 and L3. Labs reviewed and showed a leukocytosis of 13. Patient currently on a steroid for his COPD and I reviewed his labs from previous visit and his white blood cells ranges between 10-13. The patient still denying any fever, weakness, numbness or tingling sensation. No bowel or bladder incontinence. I advised the patient to follow with his primary care physician in the next 2-3 days. Critical care attestation.: If time is entered above; I have spent that time in minutes in the direct care of this critically ill patient, excluding procedure time. ED Disposition Clinical Impression: Back pain, Compression fracture Disposition: DC-01 TO HOME OR SELFCARE Is pt being admited?: No Condition: Stable Instructions: Acute Low Back Pain (ED), Vertebral Compression Fracture (ED) Referrals: JUDY JACKSON MD [Primary Care Provider] - 3-5 Days
[2018-12-20] MEDS ORDERED: SUBLIMAZE ONE (11:39)
[2018-12-20 11:47] LABS: Hemoglobin 12.3 gm/dl (11.8-15.2); Mean Corpuscular HGB Conc 33 % (32-34); Mean Corpuscular Volume 93 fl (84-94); Platelet Count 304 K/mm3 (140-440); Red Blood Count 3.96 M/mm3 (3.65-5.03); Red Cell Distribution Width 13.7 % (13.2-15.2)
[2018-12-20 12:06] LABS: BUN/Creatinine Ratio 14; Blood Urea Nitrogen 10 mg/dL (9-20); Calcium 9.3 mg/dL (8.4-10.2); Hemolysis Index 13
[2018-12-20 12:39] LABS: Basophils % (Manual) 0 % (0.0-1.8); Eosinophils % (Manual) 0 % (0.0-4.3); Total Cells Counted 100
[2018-12-20 12:40] LABS: RBC Morphology Normal
[2018-12-20] MEDS ORDERED: MORPHINE ONE (12:45)
[2018-12-20] MEDS ORDERED: MORPHINE IV ONE (12:47)
--- NOTE | 2018-12-20 12:47 | Cat Scan Report ---
FINAL REPORT EXAM: CT LUMBAR SPINE WO CON HISTORY: lower back pain, s/p radiation for lung cancer TECHNIQUE: CT of the Lumbar Spine without IV contrast. Coronal and sagittal reformatted images were provided. PRIORS: Sagittal reconstructed images from a CT abdomen and pelvis dated August 19, 2018. FINDINGS: Diffuse osteopenia. T12 moderate compression fracture deformity appears subacute to chronic. No significant retropulsion. No significant canal narrowing. L3 moderate superior endplate compression fracture deformity appears subacute to chronic. 4.0 mm retr opulsion. Ouxg-oj-eqwvytno spinal canal narrowing. There is no subluxation. T11-T12: Symmetrical bulge indents the thecal sac. No significant canal or foraminal narrowing. T12-L1: Symmetrical bulge. Minimal to mild spinal canal narrowing. Bilateral foramina are intact. L1-L2: Symmetrical bulge. Mild spinal canal narrowing. Bilateral foramina are intact. L2-L3: Symmetrical bulge. Gzta-be-zspucqul spinal canal narrowing. Bilateral foramina are intact. L3-L4: Symmetrical bulge. Mild spinal canal narrowing. Bilateral foramina are intact. L4-L5: Symmetrical bulge. Bilateral ligamentum flavum hypertrophy. Qwwo-kx-oxnyzpqq spinal canal narr owing. Mild bilateral foraminal narrowing. L5-S1: Degenerated disc. Symmetrical disc osteophyte complex. Bilateral facet arthropathy. Mild-to-mo derate spinal canal narrowing. Ncgi-rz-liyhmhib bilateral foraminal narrowing. Prevertebral soft tis juliet structures are unremarkable. SI joints are unremarkable. Images of the sacrum are grossly unremarkable. Moderate aortic atherosclerotic disease. No aneurysm. No periaortic or retroperitoneal mass or adenopathy. IMPRESSION: Diffuse osteopenia. T12 and L3 compression fractures appear subacute to chronic. No significant canal narrowing. Compress ion fractures were not present on prior. Multilevel degenerative discs and arthropathy.
[2018-12-20] MEDS ORDERED: SOLU-Medrol IV ONE (13:51)
[2018-12-20 14:29] VITALS: BP 124/71
== END 2018-12-20 14:28 | disposition home or self-care (01) ==
LOC: ED 10:51
DX: S32.039A Unspecified fracture of third lumbar vertebra, initial encounter for closed fracture (principal); J44.9 Chronic obstructive pulmonary disease, unspecified; Z88.5 Allergy status to narcotic agent; Z86.718 Personal history of other venous thrombosis and embolism; Z87.442 Personal history of urinary calculi; Z87.891 Personal history of nicotine dependence; W01.198A Fall on same level from slipping, tripping and stumbling with subsequent striking against other object, initial encounter; Y93.89 Activity, other specified; Y92.098 Other place in other non-institutional residence as the place of occurrence of the external cause; Y99.8 Other external cause status
CPT/HCPCS: 36415; 72131; 80048; 85007; 85025; 96374; 96375; 96376; 99284; J2270; J2405; J2930; J3010

== ENCOUNTER 2019-04-07 11:43 | Outpatient (CLI) | payer MEDICARE ==
--- NOTE | 2019-04-08 09:31 | PET Report ---
PET SB TO MT SUBSEQUENT: HISTORY: Restaging of right lung cancer. TECHNIQUE: 14.5 millicuries F-18 FDG was administered intravenously. Noncontrast CT images and PET images were obtained from the skull base to the proximal thighs. Fused images were reviewed on a workstation. The patient's blood glucose level measured 76. COMPARISON: 08/26/18. FINDINGS: BRAIN: physiologic FDG uptake in the imaged brain. NECK: physiologic FDG uptake. MEDIASTINUM/LUNGS: There appears to be coalescent mass and adenopathy at the right hilum extending into the precarinal region which has decreased in size since the previous exam. This mass has decreased from 6.7 x 6.8 cm to 5.5 x 3.3 cm. Max SUV has decreased slightly from 24.8 to 23.0. There is mild infiltration throughout the right upper lobe which probably represents radiation changes. Partial atelectasis of the right upper lobe is again noted. The remainder of the right lung and left lung are adequately aerated. PLEURA/PERICARDIUM: 3 new hypermetabolic pleural-based masses are noted on the right side. A 4.2 cm mass lateral to the right lower lobe demonstrates a SUV of 31.2. A 4.2 cm pleural-based mass anterior to the right middle lobe demonstrates an SUV of 31.7. A 2.2 cm pleural-based mass in the posterior costophrenic angle demonstrates an SUV of 28.8. Small to medium right pleural fluid has also developed. The left pleura is unremarkable. THORACIC LYMPH NODES: physiologic FDG uptake. HEPATOBILIARY: physiologic FDG uptake. Mean liver SUV measures 3.5 which has increased from 3.2 on the previous exam. No suspicious liver masses identified. PANCREAS: physiologic FDG uptake. SPLEEN: physiologic FDG uptake. ADRENAL GLANDS: physiologic FDG uptake. KIDNEYS/RENAL COLLECTING SYSTEMS: physiologic FDG uptake. BOWEL/MESENTERY: physiologic FDG uptake. PELVIC VISCERA: physiologic FDG uptake. ABDOMINAL/PELVIC LYMPH NODES: physiologic FDG uptake. MUSCULOSKELETAL: There appears to be minimal early bony erosion into the right anterior sixth rib and lateral right eighth rib which is adjacent to the anterior and lateral pleural based masses. No additional bony lesions are appreciated. IMPRESSION: Mild progression of disease is demonstrated since 08/26/18. The right hilar mass/adenopathy has decreased in size and metabolic activity as outlined above. There are 3 new pleural-based masses on the right side which erode into right ribs 6 and 8 as described. No disease is identified beneath the diaphragm.
== END 2019-04-07 11:44 | disposition home or self-care (01) ==
LOC: PET 11:43
PROVIDERS: ATTEND Radiology Radiation Oncology
DX: C34.11 Malignant neoplasm of upper lobe, right bronchus or lung (principal); J44.9 Chronic obstructive pulmonary disease, unspecified; K21.9 Gastro-esophageal reflux disease without esophagitis
CPT/HCPCS: 78815; 82962; A9552